=== PATIENT | female | born 1985 | race Caucasian/White ===

== ENCOUNTER 2016-04-08 12:25 | Emergency (ER) | payer BC, OTHER ==
[2016-04-08] MEDS ORDERED: ASPIRIN 81 MG CHEWABLE CTB PO STA (12:29)
[2016-04-08] MEDS ORDERED: SODIUM CHLORIDE 0.9% FLUSH 10 ML SOL IV PRN (12:29)
[2016-04-08] MEDS ORDERED: NITROGLYCERIN 0.4 MG TAB SL PRN (12:29)
[2016-04-08] MEDS ORDERED: ASPIRIN 81 MG CHEWABLE CTB ONE (12:30)
[2016-04-08] MEDS ORDERED: NITROGLYCERIN 0.4 MG TAB SL ONE (12:30)
[2016-04-08 12:45] LABS: BASOPHILS % (AUTO) 1 % (0-3); EOSINOPHILS % (AUTO) 0 % (0-9); HEMATOCRIT 39 % (35-47); MEAN CORPUSCULAR VOLUME 87 fL (81-99); MONOCYTES % (AUTO) 7.7 % (0-12); NEUTROPHILS % (AUTO) 66.8 % (37-80)
[2016-04-08 12:47] VITALS: TEMP 97.6
[2016-04-08 13:03] LABS: CALCIUM 8.5 mg/dl (8.5-10.1); GLOM FILT RATE 81 mL/min (>60); POTASSIUM 3.7 mMol/L (3.5-5.1); SODIUM 140 mMol/L (136-145)
[2016-04-08] MEDS ORDERED: SODIUM CHLORIDE 0.9% 1000ML 1,000 ML IV ONE ×2 (13:06→14:09)
[2016-04-08] MEDS ORDERED: DILTIAZEM 5 MG/ML SOL IV ONE ×4 (13:10→13:42)
[2016-04-08] MEDS ORDERED: MORPHINE SULFATE 10 MG/ML SOL IV ONE (13:39)
[2016-04-08] MEDS ORDERED: MORPHINE SULFATE 10 MG/ML SOL ONE (13:42)
[2016-04-08 13:50] VITALS: RESP 21; O2SAT 98
[2016-04-08] MEDS ORDERED: METOPROLOL TARTRATE 5 MG/5 ML SOL IV ONE ×2 (13:55→14:03)
[2016-04-08] MEDS: METOPROLOL TARTRATE 5 MG/5 ML SOL IV SCH ×3 (14:00→14:10)
[2016-04-08] MEDS ORDERED: DIPHENHYDRAMINE 50 MG/ML SOL IV ONE ×2 (14:00)
[2016-04-08] MEDS ORDERED: DIPHENHYDRAMINE 50 MG/ML SOL ONE (14:01)
[2016-04-08 14:17] LABS: AMPHETAMINES NEGATIVE (NEGATIVE); METHADONE NEGATIVE (NEGATIVE); OPIATES(OP13) NEGATIVE (NEGATIVE); TRICYCLIC ANTIDEPRESSANTS NEGATIVE (NEGATIVE)
[2016-04-08 14:18] LABS: OXYCODONE(OXY) NEGATIVE (NEGATIVE); PROPOXYPHENE(PPX) NEGATIVE (NEGATIVE)
[2016-04-08 14:19] LABS: APPEARANCE,URINE Clear; BILIRUBIN,URINE NEGATIVE (NEGATIVE); COLOR,URINE Light yellow; GLUCOSE, URINE (UA) NEGATIVE (NEGATIVE); KETONES,URINE NEGATIVE (NEGATIVE); LEUKOCYTE ESTERASE ,URINE 2+ (NEGATIVE); NITRATE,URINE NEGATIVE (NEGATIVE); OCCULT BLOOD,URINE 1+ (NEG-TRACE); UROBILINOGEN,URINE 0.2 (0.2-1.0 EU)
[2016-04-08 14:41] LABS: RBC,URINE 0-2 (0-3AV/HPF)
[2016-04-08 15:06] LABS: MAGNESIUM 1.6 mg/dl (1.8-2.4)
[2016-04-08 16:10] VITALS: BP 117/69; PULSE 100
== END 2016-04-08 15:50 | disposition short-term general hospital (02) | DRG 313 ==
LOC: ED 12:25
DX: R07.9 Chest pain, unspecified (principal); I47.2 Ventricular tachycardia; R00.2 Palpitations
CPT/HCPCS: 36415; 71010; 71275; 80048; 80305; 81001; 82550; 83735; 84443; 84484; 84703; 85025; 85378; 85610; 85730; 93005; 96365; 96366; 96374; 96375; 99291; J1200; J2270; Q9967